=== PATIENT | female | born 1950 | race Caucasian/White ===

== ENCOUNTER 2019-08-20 14:01 | Outpatient (CLI) | payer MEDICARE, BC, SELFPAY ==
--- NOTE | ~2019-08-20 | US_ITS ---
EXAMINATION: US art doppler w press LE BI DATE: 08/20/2019 14:48 INDICATION: Atherosclerotic disease in the bilateral common and superficial femoral arteries. Symptom s and signs involving the circulation with peripheral vascular disease risk factors of hypercholester olemia, hypertension and smoking. TECHNIQUE: Segmental pressures and plethysmographic and Doppler waveforms of the brachial and lower e xtremity arteries were obtained. COMPARISON: None. FINDINGS: Right and left brachial artery pressures of 136 mm Hg and 128 mm Hg, respectively, are concordant (no rmal difference <= 30 mmHg). The right and left high-thigh pressure indices are 1.16 and 0.63, respec tively (normal > 1.2). The right ankle-brachial index (CRISTOFER) is 0.48 (normal >= 0.9-1). The right great toe-brachial index (T BI) is 0.48 (normal >= 0.6-0.8). The right lower extremity segmental pressure gradients are increased between the right above and ahcgz-dqv-dfxj popliteal arteries (normal gradients <= 20-30 mmHg betwee n adjacent levels on the same leg or the same levels on the two legs). Arterial waveforms are biphasi c with brisk systolic upstrokes throughout. The left CRISTOFER is 0.47. The left TBI is 1.47. The left lower extremity segmental pressure gradients are increased between the left and right high thigh and guoru-zyd-suqn popliteal arteries. Arterial wave forms are biphasic with brisk systolic upstrokes throughout. IMPRESSION: 1. 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 There are significant gradients suggesting disease in the left iliac or proximal femoral arteries and in the ri ght popliteal artery. Reviewed, dictated and finalized at location A. IMPRESSION: 1. 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 There are significant gradients suggesting disease in the left jourdan c or proximal femoral arteries and in the right popliteal artery.
== END 2019-08-20 14:02 | disposition home or self-care (01) ==
PROVIDERS: PCP Family Medicine; Visit Provider Family Medicine
DX: R09.89 Other specified symptoms and signs involving the circulatory and respiratory systems (principal); I77.1 Stricture of artery
CPT/HCPCS: 93923

== ENCOUNTER 2020-09-05 15:01 | Outpatient (CLI) | payer MEDICARE, BC, SELFPAY ==
--- NOTE | ~2020-09-05 | MM_ITS ---
EXAMINATION: MM screening [facility] BI w [facility] HISTORY: Screening mammogram TECHNIQUE: Craniocaudal and mediolateral oblique 3-D tomosynthesis images were obtained and synthetic 2-D images were generated. CAD analysis was submitted and interpreted. COMPARISON: 04/05/2014, 09/23/2012 BREAST PARENCHYMAL COMPOSITION: There are scattered areas of fibroglandular density. FINDINGS: Scattered benign-appearing calcifications are present. There is no evidence of suspicious m ass, calcification, or architectural distortion to suggest malignancy in either breast. There has bee n no suspicious interval change. IMPRESSION: 1. No mammographic evidence of malignancy. 2. Recommend routine screening mammography in one year. BI-RADS Category 2: Benign finding(s). Reviewed, dictated and finalized at location A.
--- NOTE | ~2020-09-05 | DEXA_ITS ---
Bone Density Report Name: Cassandra Robles Age: 70 Sex: Female Ethnicity: White Date of : 1950 Indication: osteopenia; height loss; inflammatory bowel disease; hysterectomy; Referring Provider: Olaf Blair Study: Bone densitometry was performed. Exam Date: September 05, 2020 Accession number: [id number] Bone Density: Region BMD T-score Z-score Classification AP Spine (L1, L3, L4) 0.959 -0.9 1.4 Normal Femoral Neck (Left) 0.658 -1.7 0.2 Osteopenia Total Hip (Left) 0.816 -1.0 0.5 Normal Total Hip Bilateral Avg 0.794 -1.2 0.4 Osteopenia Femoral Neck (Right) 0.747 -0.9 1.0 Normal Total Hip (Right) 0.772 -1.4 0.2 Osteopenia World Health Organization criteria for BMD impression classify patients as: Normal (T-score at or above -1.0), Osteopenia (T-score between -1.0 and -2.5), or Osteoporosis (T-score at or below -2.5). 10-year Fracture Risk(1): Major Osteoporotic Fracture 11% Hip Fracture 2.9% Reported Risk Factors: [place] (), Neck BMD=0.658, BMI=32.3, smoking (1) FRAX(R) Version 3.08. Fracture probability calculated for an untreated patient. Fracture probability may be lower if the patient has received treatment. Previous Exams: Region Exam Age BMD T-score BMD Change BMD Change Date g/cm2 vs Baseline vs Previous AP Spine(L1, L3, L4) 09/05/2020 70 0.959 -0.9 0.054(5.9%)# 0.054(5.9%)# 08/09/2011 61 0.906 -1.3 Total Hip(Left) 09/05/2020 70 0.816 -1.0 -0.018(-2.2%)# -0.018(-2.2%)# 08/09/2011 61 0.834 -0.9 Total Hip(Right) 09/05/2020 70 0.772 -1.4 -0.044(-5.4%)# -0.044(-5.4%)# 08/09/2011 61 0.815 -1.0 *Denotes significance at 95% confidence level, LSC for AP Spine = 0.022 g/cm2, LSC for Total Hip = 0.027 g/cm2 Clinical Information Provided by Patient: Smokes Has the following medical conditions: Inflammatory bowel diseases, Hysterectomy Patient maximum height was 65 Menopause Age: 41 No regular weight bearing exercise Does not regularly consume dairy products Drinks caffeinated beverages Onset of menses at age 9 Number of children 1 Impression: The patient has low bone mass, based on the Left Femoral Neck T-score. The patient has an estimated ten-year risk of hip fracture of 2.9% and an estimated ten-year risk of major fracture of 11%, based on the WHO FRAX algorithm. The patient has risk factors, including: smoking. No significant bone loss was observed. Discussion: BONE DENSITY IS LOW AT ON
== END 2020-09-05 15:02 | disposition home or self-care (01) ==
LOC: ANHIMG 15:05
PROVIDERS: PCP Family Medicine; Visit Provider Family Medicine
DX: Z12.31 Encounter for screening mammogram for malignant neoplasm of breast (principal); Z78.0 Asymptomatic menopausal state; M19.91 Primary osteoarthritis, unspecified site; M85.851 Other specified disorders of bone density and structure, right thigh; M85.852 Other specified disorders of bone density and structure, left thigh
CPT/HCPCS: 77063; 77067; 77080

== ENCOUNTER 2020-12-05 01:24 | Day surgery (SDC) | payer MEDICARE, BC, SELFPAY ==
[2020-11-22 13:26] VITALS: BMI 31.6
--- NOTE | 2020-12-05 10:05 | WPDGICN ---
Assessment and Plan Assessment and plan (1) History of colon polyps: Code(s): Z86.010 - Personal history of colonic polyps Status: Acute Assessment and Plan: Patient has had colon polyps on previous colonoscopies in 2017, 2010, 2004. Plan is for surveillance colonoscopy now and at least every 5 years in the future. (2) Family hx of colon cancer: Code(s): Z80.0 - Family history of malignant neoplasm of digestive organs Status: Acute Assessment and Plan: Patient's brother was found to have colon cancer. Suggesting family tendency. Plan is for surveillance colonoscopy at least every 5 years. GI Consult Note Consult date/time: 12/05/20 10:05 HPI: Cassandra Robles is a 70 year old female presents for screening colonoscopy. Patient has a history of colon polyps on several previous colonoscopies. Most recently 2016. Additionally her brother is been identified as having colon cancer. Patient states that her current weight appetite bowel movements are normal. She denies abdominal pain. She has had no bleeding. Colonoscopy will be performed today. Review of Systems Review of Systems: All systems reviewed & are unremarkable except as noted in HPI and below PMFSH Past Medical History Medical History PMR (polymyalgia rheumatica) Surgical History Surgical History H/O: hysterectomy History of salpingo-oophorectomy Family History Family History Mother Family history of suicide, Onset Age: 39 Depression, Onset Age: 39 Sibling Family history of cardiovascular disease Carcinoma of colon Family history of lung cancer Family history of primary malignant neoplasm of liver Family history of lymphoma Family history of malignant neoplasm of urinary bladder Family history of congestive heart failure, Onset Age: 74 Acute myocardial infarction, Onset Age: 75 Father Family history of lung cancer, Onset Age: 69 Patient's father is , Onset Age: 69 Other Hypertension Social History Social History (Updated 09/22/20 @ 09:50 by Dominique Fan CMA) Smoking status: Never smoker Alcohol intake: current Substance use type: does not use Living arrangements: with family Spiritual care concerns: No Meds Home Medications and Allergies Home Medications Medication Instructions Recorded Confirmed Type glucosamine 750 pa-nbcjeumzuh-kxc 1 tablet PO DAILY tablet 02/02/19 11/22/20 History no.1 625 mg-C 30 sz-gfzh-ahwv tablet ezetimibe 10 mg-simvastatin 40 mg 1 tablet PO DAILY PRN #90 tablet 02/07/20 11/22/20 Rx tablet hydrochlorothiazide 25 mg tablet 25 mg PO DAILY #90 tablet 02/07/20 11/22/20 Rx lisinopril 40 mg tablet 40 mg PO DAILY #90 tablet 02/07/20 11/22/20 Rx metoprolol succinate 50 mg 50 mg PO BID #180 tablet 02/07/20 11/22/20 Rx tablet,extended release 24 hr bupropion HCl 100 mg tablet,12 hr 100 mg PO BID #180 tablet 08/08/20 11/22/20 Rx sustained-release trazodone 50 mg tablet 50 mg PO .QHS #90 tablet 10/10/20 11/22/20 Rx venlafaxine 75 mg tablet,extended 225 mg PO DAILY #90 tablet 11/07/20 Rx release 24 hr vitamin A-vitamin C-vit E-min 1 tablet PO DAILY 11/22/20 11/22/20 History [Ocuvite] Allergies Allergy/AdvReac Type Severity Reaction Status Date / Time Corticosteroids Allergy Unknown Skin Verified 12/05/20 10:04 (Glucocorticoids) Reaction codeine AdvReac Unknown Headache Verified 12/05/20 10:04 Exam Narrative: Physical exam reveals patient to be alert. Vital signs stable. HEENT exam is unremarkable. Patient is anicteric. Lungs are clear to auscultation and percussion. Heart is without murmur or extra sounds. Abdominal exam bowel sounds are present soft nontender with no organomegaly. Digi
[2020-12-05 10:11] VITALS: BP 152/79; PULSE 67; RESP 18; TEMP 36.8; O2SAT 99
[2020-12-05] MEDS: LACTATED RINGERS 1,000 ML 150 ML IV CONT (10:21)
--- NOTE | 2020-12-05 10:26 | WPDANESEPPF ---
Anes - Initial Pre Proc Eval Procedure: Operation Date: 12/05/20 11:30 Proposed Procedures p Screening Colonoscopy - Suraj Carbajal MD Date/Time: 12/05/20 10:26 Surgeon: Suraj Carbajal MD Pre Op Diagnosis: hx of colon polyps Patient Data Age: 70 Gender: F Height: 1.6 m Weight: 81.5 kg Last Vital Signs Temp 98.2 F 12/05/20 10:11 Pulse 67 12/05/20 10:11 Resp 18 12/05/20 10:11 BP 152/79 H 12/05/20 10:11 Pulse Ox 99 12/05/20 10:11 Allergies Allergy/AdvReac Type Severity Reaction Status Date / Time Corticosteroids Allergy Unknown Skin Verified 12/05/20 10:09 (Glucocorticoids) Reaction codeine AdvReac Unknown Headache Verified 12/05/20 10:09 Home Medications Medication Instructions Recorded Confirmed Type glucosamine 750 rd-rzkemfhmbu-vuq 1 tablet PO DAILY tablet 02/02/19 12/05/20 History no.1 625 mg-C 30 zp-wppn-ylrt tablet ezetimibe 10 mg-simvastatin 40 mg 1 tablet PO DAILY PRN #90 tablet 02/07/20 12/05/20 Rx tablet hydrochlorothiazide 25 mg tablet 25 mg PO DAILY #90 tablet 02/07/20 12/05/20 Rx lisinopril 40 mg tablet 40 mg PO DAILY #90 tablet 02/07/20 12/05/20 Rx metoprolol succinate 50 mg 50 mg PO BID #180 tablet 02/07/20 12/05/20 Rx tablet,extended release 24 hr bupropion HCl 100 mg tablet,12 hr 100 mg PO BID #180 tablet 08/08/20 12/05/20 Rx sustained-release trazodone 50 mg tablet 50 mg PO .QHS #90 tablet 10/10/20 12/05/20 Rx venlafaxine 75 mg tablet,extended 225 mg PO DAILY #90 tablet 11/07/20 12/05/20 Rx release 24 hr vitamin A-vitamin C-vit E-min 1 tablet PO DAILY 11/22/20 12/05/20 History [Ocuvite] Patient hx anesthesia problems: none Family hx anesthesia problems: none Results Review: All pre-operative results and documents have been reviewed as part of the pre-operative evaluation. PMFSH Past Medical History Medical History PMR (polymyalgia rheumatica) Surgical History Surgical History H/O: hysterectomy History of salpingo-oophorectomy Family History Family History Mother Family history of suicide, Onset Age: 39 Depression, Onset Age: 39 Sibling Family history of cardiovascular disease Carcinoma of colon Family history of lung cancer Family history of primary malignant neoplasm of liver Family history of lymphoma Family history of malignant neoplasm of urinary bladder Family history of congestive heart failure, Onset Age: 74 Acute myocardial infarction, Onset Age: 75 Father Family history of lung cancer, Onset Age: 69 Patient's father is , Onset Age: 69 Other Hypertension Social History Social History (Updated 09/22/20 @ 09:50 by Dominique Fan CMA) Smoking status: Never smoker Alcohol intake: current Substance use type: does not use Living arrangements: with family Spiritual care concerns: No Anes - Eval Final PreProcedure Day of Procedure 12/05/20 10:26 Patient weight: obese Heart: regular rate and rhythm Lungs: clear to auscultation Airway: Mallampati scale class II Neurological: alert and oriented Last oral intake: >/= 8 hours ASA classification: III Emergent: no Anesthetic plan: proceed Anesthesia type and monitoring: general GIVS and standard monitoring Results Review: All pre-operative results and documents have been reviewed as part of the pre-operative evaluation. Informed Consent: The patient's anesthetic plan and its attendant risks and benefits were discussed with the patient/family/POA. Questions were solicited and answers provided to the satisfaction of the patient/family/POA.
[2020-12-05 11:33] VITALS: BP 130/56; PULSE 52; RESP 15; O2SAT 100
--- NOTE | 2020-12-05 11:37 | SUR.OPER ---
RECTAL POLYPS REMOVED X3 WITH ONLY [address] ARENAS AWARE 12/05/2020 @ 1137. EMILIO ABDULLAHI & MIROSLAVA TECH.
[2020-12-05 11:43] VITALS: BP 132/62; PULSE 51; RESP 12; O2SAT 98
[2020-12-05 11:53] VITALS: BP 157/62; PULSE 50; RESP 12; O2SAT 100
== END 2020-12-05 12:29 | disposition home or self-care (01) ==
PROVIDERS: PCP Family Medicine; Visit Provider Internal Medicine Gastroenterology
PROC: 0DJD8ZZ Inspection of Lower Intestinal Tract, Via Natural or Artificial Opening Endoscopic (ICD-10-PCS; CPT 45378; principal; 2020-12-05 11:30)
DX: Z12.11 Encounter for screening for malignant neoplasm of colon (principal); D12.2 Benign neoplasm of ascending colon; D12.3 Benign neoplasm of transverse colon; D12.8 Benign neoplasm of rectum; K63.5 Polyp of colon; K64.8 Other hemorrhoids; K57.30 Diverticulosis of large intestine without perforation or abscess without bleeding; Z80.0 Family history of malignant neoplasm of digestive organs; M35.3 Polymyalgia rheumatica
CPT/HCPCS: 45385; 88305; J7120

== ENCOUNTER 2021-03-22 11:47 | Outpatient (CLI) | payer MEDICARE, BC, SELFPAY ==
--- NOTE | ~2021-03-22 | XR_ITS ---
XR lumbar spine 6V w bending DATE: 03/22/2021 12:30 INDICATION: Chronic low back pain. Sciatica. TECHNIQUE: AP, lateral, coned lateral lumbosacral views. Bilateral oblique views. Flexion and extensi on lateral views. COMPARISON: None FINDINGS: There is diffuse osteopenia. There is rotatory dextroscoliosis of the lumbar spine. There is prominent degenerative disc disease throughout the lumbar spine. No spondylolysis or spondylolisthesis. The lumbar pedicles are intact. No bone destruction is detected. No instability on flexion or extension. The sacroiliac joints are intact. There is extensive calcification of the abdominal aorta and iliac arteries. IMPRESSION: Rotatory dextroscoliosis and multi-level degenerative disc disease Osteopenia Reviewed, dictated and finalized at location A. ASSEMBLER
== END 2021-03-22 11:48 | disposition home or self-care (01) ==
PROVIDERS: PCP Family Medicine; Visit Provider Family Medicine
DX: M85.88 Other specified disorders of bone density and structure, other site (principal); M41.9 Scoliosis, unspecified
CPT/HCPCS: 72114

== ENCOUNTER 2021-04-03 13:24 | Outpatient (CLI) | payer MEDICARE, BC, SELFPAY ==
--- NOTE | ~2021-04-03 | MR_ITS ---
EXAMINATION: MR lumbar spine wo [facility] EXAM DATE: 04/03/2021 14:50 INDICATION: M47.9 - Spondylosis, unspecified. TECHNIQUE: Multi-sequential, multiplanar MR images of the lumbar spine were obtained without contrast . Sagittal T1, T2, T2 fat saturation images. Axial T2 weighted images. There is no prior study for comparison. FINDINGS: There is mild to moderate upper lumbar dextroscoliosis, with mild compressions at the conca ve side of the scoliosis, the L2-3 endplates which could be subacute given amount of edema. There is moderate disc disease at L2-3, mild to moderate at L1-2, L3-4, mild at the lower lumbar levels. Mild to moderate disc disease at the lower thoracic levels. The vertebral bodies are aligned in the AP dim ension. No spondylolysis suspected. Paraspinal soft tissue is unremarkable. The conus medullaris term inates at the L1 level and has normal signal intensity and morphology. Level by level evaluation: T12-L1: There is a mild diffuse disc bulge. Facet arthropathy: None. Neural foraminal stenosis: No stenosis. Central canal stenosis: No stenosis. L1-L2: There is a mild to moderate diffuse disc bulge. Facet arthropathy: Mild. Neural foraminal stenosis: Mild left. Central canal stenosis: Mild. L2-L3: There is a mild to moderate diffuse disc bulge. Facet arthropathy: Mild to moderate bilateral. Neural foraminal stenosis: Mild to moderate left. Central canal stenosis: Mild. L3-L4: There is a mild diffuse disc bulge. Facet arthropathy: Moderate . Ligamentum flavum enlargement. Neural foraminal stenosis: Mild left. Central canal stenosis: Mild. L4-L5: There is a mild to moderate diffuse disc bulge. Facet arthropathy: Moderate . Ligamentum flavum enlargement. Neural foraminal stenosis: Mild left. Central canal stenosis: Mild. L5-S1: There is a mild diffuse disc bulge. Facet arthropathy: Moderate, right more than left. Neural foraminal stenosis: Moderate to severe right. Central canal stenosis: Mild. IMPRESSION: 1. L5-S1 moderate to severe right neural foraminal stenosis, nerve root passing through the narrowes t portion of the foramina. 2. Mild to moderate upper lumbar dextroscoliosis with resultant mild subacute appearing compressions at L2-3 endplates. Reviewed, dictated and finalized at location G. RY CUTTER IMPRESSION: 1. L5-S1 moderate to severe right neural foraminal stenosis, nerve root passin g through the narrowest portion of the foramina. 2. Mild to moderate upper lumbar dextroscoliosis with resultant mild subacute appearing compressions at L2-3 endplates.
== END 2021-04-03 13:25 | disposition home or self-care (01) ==
PROVIDERS: PCP Family Medicine; Visit Provider Family Medicine
DX: M47.9 Spondylosis, unspecified (principal); M54.9 Dorsalgia, unspecified; M48.07 Spinal stenosis, lumbosacral region; M41.86 Other forms of scoliosis, lumbar region
CPT/HCPCS: 72148

== ENCOUNTER 2021-08-02 10:13 | Outpatient (CLI) | payer MEDICARE, BC, SELFPAY ==
--- NOTE | ~2021-08-02 | XR_ITS ---
EXAMINATION: XR chest 2V 08/02/2021 10:28 INDICATION: Tobacco use PROCEDURE: 2 view chest COMPARISON: 12/18/2012 FINDINGS: The lungs are clear. The cardiomediastinal silhouette is within normal limits. There are no pleural effusions. There is no pneumothorax suspected. The lungs are hyperinflated which is cons istent with, but not diagnostic of chronic obstructive pulmonary disease. Mild thoracic spondylosis. The lungs are hyperinflated which is consistent with, but not diagnostic of chronic obstructive pulmo nary disease. IMPRESSION: 1: NO ACUTE CARDIOPULMONARY DISEASE. Reviewed, dictated and finalized at location A.
== END 2021-08-02 10:14 | disposition home or self-care (01) ==
LOC: ANHIMG 10:18
PROVIDERS: PCP Family Medicine; Visit Provider Family Medicine
DX: M47.814 Spondylosis without myelopathy or radiculopathy, thoracic region (principal); E83.52 Hypercalcemia
CPT/HCPCS: 71046

== ENCOUNTER 2024-02-27 12:29 | Outpatient (CLI) | payer MEDICARE, BC, SELFPAY ==
--- NOTE | ~2024-02-27 | US_ITS ---
EXAMINATION: US thyroid DATE: 02/27/2024 13:27 INDICATION: Primary hyperparathyroidism TECHNIQUE: Multiple ultrasound images of the thyroid were obtained. COMPARISON: None. FINDINGS: The right thyroid lobe measures 3.7 x 1.3 x 1.1 cm. The left thyroid lobe measures 2.5 x 1.2 x 0.8 c m. There are couple subcentimeter solid hypoechoic wider than tall nodule with smooth to ill-defined margins and without echogenic foci measuring 6 mm maximal diameter at the right thyroid lobe and 4 m m in maximal diameter at the left thyroid lobe (TI-RADS 4, moderately suspicious , FNA if >=1.5 cm, a nnual followup is >=1 cm). There is normal echotexture, echogenicity and vascular flow throughout the thyroid gland. IMPRESSION: 1. A couple subcentimeter TI-RADS 4 nodules which remain below size criteria for either biopsy or fol low-up. Reviewed, dictated and finalized at location A. OR OF RADIOLOGY IMPRESSION: 1. A couple subcentimeter TI-RADS 4 nodules which remain below size criteria fo r either biopsy or follow-up.
--- NOTE | ~2024-02-27 | CT_ITS ---
EXAMINATION: CT soft tissue neck wo con DATE: 02/27/2024 13:17 INDICATION: Primary hyperparathyroidism TECHNIQUE: Computed tomography (CT) of the neck was performed without intravenous contrast. Automated exposure control and iterative reconstruction technique were employed. The dose-length product was 4 08.34 mGy-cm. COMPARISON: None FINDINGS: Orbits are normal. The paranasal sinuses are clear. Visualized sinuses and mastoid aircells are well aerated. Submandibular and parotid glands are symmetric. Left thyroid lobe is atrophic versus absent. There are scattered normal-sized lymph nodes in the neck, no lymphadenopathy. No masses identified. Airway is unremarkable. Superior mediastinum is unremarkable. Mild to moderate emphysema at the apic es of lungs. Dental caries with periapical lucency surrounding the defect at the right maxilla. Mode rate lower cervical spondylosis. IMPRESSION: 1. Absent versus severely atrophic left thyroid lobe. 2. Dental disease with periapical lucencies at a couple teeth along the right maxilla. Reviewed, dictated and finalized at location B. FEEDER IMPRESSION: 1. Absent versus severely atrophic left thyroid lobe. 2. Dental disease with periapical lucencies at a couple teeth along the right m axilla.
== END 2024-02-27 12:30 | disposition home or self-care (01) ==
LOC: MICIMG 12:30
PROVIDERS: PCP Clinical Nurse Specialist; Visit Provider Otolaryngology
DX: E21.0 Primary hyperparathyroidism (principal); E04.2 Nontoxic multinodular goiter
CPT/HCPCS: 70490; 76536